=== PATIENT | male | born 1965 | race African-American/Black ===

== ENCOUNTER 2019-10-14 08:40 | Emergency (ER) | payer SELFPAY ==
[2019-10-14 09:43] LABS: Hemoglobin 14.3 g/dL (14.0-18.0); Mean Corpuscular HGB CONC 31.1 g/dL (32.0-36.0); Mean Corpuscular Hemoglobin 28.8 pg (27.0-31.0); Mean Corpuscular Volume 92.6 fL (78.0-98.0); Mean Platelet Volume 8.6 fL (7.4-10.4); Platelet Count 169 thou/uL (130-400); RBC Distribution Width 11.9 % (11.5-14.5); Red Blood Cell (RBC) Count 4.95 mill/uL (4.70-6.10); White Blood Cell (WBC) Count 5.3 thou/uL (4.8-10.8)
[2019-10-14] MEDS ORDERED: Iopamidol 370 76% 100 ML VIAL ONE (09:55)
[2019-10-14 09:56] LABS: ALT (SGPT) 14 U/L (8-55); AST (SGOT) 32 U/L (5-34); Albumin 3.9 g/dL (3.5-5.0); Alkaline Phosphatase 62 U/L (40-110); Anion Gap 13 mmol/L (10-20); BUN (Urea Nitrogen) 12 mg/dL (8.4-25.7); Bilirubin, Total 0.7 mg/dL (0.2-1.2); Calc. Creatinine Clearance 0 mL/min (70-130); Calcium 9.1 mg/dL (7.8-10.44); Carbon Dioxide 24 mmol/L (22-29); Chloride 102 mmol/L (98-107); Estimated GFR-MDRD 90; Globulin 3.6 g/dL (2.4-3.5); Glucose 82 mg/dL (70-105); Lipase 83 U/L (8-78); Potassium 3.8 mmol/L (3.5-5.1); Protein, Total 7.5 g/dL (6.0-8.3); Sodium 135 mmol/L (136-145)
[2019-10-14 10:02] LABS: Lymphocytes 16 % (21-51); MDiff Complete? YES; Monocytes 15 % (0-10); Neutrophil 67 % (42-75); Platelet Morphology Comment Appears Adequate; RBC Morphology Normal
--- NOTE | 2019-10-14 10:36 | CT ---
CT CERVICAL SPINE: DATE: 10/14/2019. PROVIDED CLINICAL HISTORY: Pain status post injury. FINDINGS: Comparison 02/04/2014. There is no evidence for a fracture or traumatic subluxation. Cervical degene rative changes are redemonstrated. No prevertebral soft tissue swelling apparent. The visualized delfino ng apices appear clear. IMPRESSION: No evidence for a fracture or traumatic subluxation. POS: [facility]
--- NOTE | 2019-10-14 10:42 | CT ---
CT OF THE BRAIN WITHOUT CONTRAST: COMPARISON: 12/02/2016. HISTORY: Patient fell off an 8 foot roof 2 days ago and hit his head on the frame of the roof. TECHNIQUE: Multiple contiguous axial images were obtained in a CT of the brain without contrast. FINDINGS: The brain is normal in morphology and attenuation without focal lesions or confluent areas of infarct ion. There is no evidence of hydrocephalus, intracranial hemorrhage, or extraaxial fluid collection. The calvarium and overlying soft tissues are unremarkable. The visualized paranasal sinuses and mast oid air cells are well aerated. IMPRESSION: No evidence of acute intracranial abnormality. POS: [facility]
--- NOTE | 2019-10-14 10:43 | CT ---
CT FACE WITHOUT CONTRAST: COMPARISON: 02/04/2014. HISTORY: The patient fell off a roof 2 days ago with facial trauma. TECHNIQUE: Multiple contiguous axial images were obtained in a CT of the face without contrast. Sagittal and co brittnee reformats were performed. FINDINGS: There are mildly displaced nasal bone fractures. No other facial fractures are identified. The para nasal sinuses are well aerated. The globes and retrobulbar soft tissues are unremarkable. The mastoid air cells are well aerated. IMPRESSION: Minimally displaced bilateral nasal bone fractures. POS: [facility]
--- NOTE | 2019-10-14 11:06 | RAD ---
THREE VIEWS RIGHT SHOULDER: COMPARISON: None. HISTORY: Fall 8 feet off a roof 2 days ago with right shoulder pain. FINDINGS: Three views of the right shoulder show no evidence of acute fracture or dislocation. There are moder ate degenerative changes in the acromioclavicular joint. The visualized right thorax is unremarkable . IMPRESSION: Moderate acromioclavicular osteoarthritis without acute osseous abnormality. POS: [facility]
[2019-10-14] MEDS ORDERED: Ketorolac Tromethamine 30 MG/ML VIAL ONE (11:11)
[2019-10-14] MEDS ORDERED: HYDROcodone/Acetaminophen 10/325 mg Tablet ONE (11:26)
--- NOTE | 2019-10-14 11:28 | CT ---
CT OF THE CHEST WITH CONTRAST CT OF THE ABDOMEN AND PELVIS WITH CONTRAST LIMITED CTS OF THE THORACIC AND LUMBOSACRAL SPINES WITH CONTRAST: HISTORY: Fall off a roof 2 days ago with chest pain, abdominal pain, and back pain. TECHNIQUE: 1. Multiple contiguous axial images were obtained in a CT of the chest with contrast. Sagittal and coronal reformats were performed. 2. Multiple contiguous axial images were obtained in a CT of the abdomen and pelvis with contrast. Sagittal and coronal reformats were performed. 3. Limited CTs of the thoracic and lumbosacral spines were performed. Sagittal and coronal reformat s were created based off images obtained in the chest, abdomen, and pelvic CTs. FINDINGS: CT CHEST: Atelectasis is seen in the lung bases. No pneumothorax or pleural effusions are seen. No focal infi ltrates or suspicious pulmonary nodules are seen. The heart is normal in size without focal cardiac abnormality. No hilar or mediastinal lymphadenopat hy are seen. The chest wall soft tissues and bones of the thorax are unremarkable. CT ABDOMEN/PELVIS: There is a 3.8 cm cyst in the left kidney. The liver, gallbladder, right kidney, adrenal glands, spl een, and pancreas are unremarkable. No free air, free fluid, or stranding changes are seen in the ab domen or pelvis. The large and small bowel are unremarkable. No abdominal or pelvic lymphadenopathy are seen. The bones of the pelvis and abdominal wall soft tissues are unremarkable. LIMITED CT OF THE THORACIC AND LUMBOSACRAL SPINE: The vertebral bodies demonstrate height and alignment without fracture or subluxation. There are fra ctures of the right L3 and L4 transverse processes. No prevertebral soft tissue swelling is seen. M ild to moderate degenerative changes are seen throughout the spine. IMPRESSION: 1. No evidence of acute intrathoracic abnormality. 2. No evidence of acute intraabdominal/pelvic abnormality. 3. Left renal cyst. 4. Right L3 and L4 transverse process fractures. POS: [facility]
== END 2019-10-14 11:40 | disposition home or self-care (01) ==
LOC: ERS 08:40
DX: S32.039A Unspecified fracture of third lumbar vertebra, initial encounter for closed fracture (principal); S32.049A Unspecified fracture of fourth lumbar vertebra, initial encounter for closed fracture; S02.2XXA Fracture of nasal bones, initial encounter for closed fracture; S00.83XA Contusion of other part of head, initial encounter; N28.1 Cyst of kidney, acquired; I10 Essential (primary) hypertension; F17.220 Nicotine dependence, chewing tobacco, uncomplicated; W17.89XA Other fall from one level to another, initial encounter; Y99.0 Civilian activity done for income or pay
CPT/HCPCS: 36415; 70450; 70486; 71260; 72125; 74177; 80053; 83605; 83690; 85025; 86850; 86900; 86901; 93005; 96374; J1885; Q9967